=== PATIENT | female | born 1950 | race Caucasian/White ===

== ENCOUNTER 2017-06-10 09:31 | Emergency (ER) | payer BC, MEDICARE ==
[2017-06-10 10:49] VITALS: BP 130/85
--- NOTE | 2017-06-10 11:21 | UC ---
Throat Pain/Nasal Francisco J HPI - HPI Summary HPI Summary: This is a 67 yo female with HTN and hypothyroidism who presented with c/o 7-10 h /o nasal congestion and facial pain. She has had intermittent allergies in the past, but generally doesn't require treatment. She has been nervous about using any OTC medications because of her h/o HTN. She denies fever. Reports associated ear pain and ST. No cough or SOB. She has been using tylenol/ ibuprofen for pain relief. - History of Current Complaint Chief Complaint: UCGeneralIllness Stated Complaint: SINUS Hx Last Menstrual Period: 1990 - Allergies/Home Medications Allergies/Adverse Reactions: Allergies Allergy/AdvReac Type Severity Reaction Status Date / Time Iodine Allergy Severe Difficulty Verified 06/10/17 10:49 Breathing Hydrocodone [From Vicodin] Allergy Intermediate Hallucinati Verified 06/10/17 10 :49 ons Morphine Allergy Intermediate Hallucinati Verified 06/10/17 10:49 ons Adhesive Tape Allergy IRRITATION, Verified 06/10/17 10:49 TEARS SKIN Codeine Allergy Hallucinati Verified 06/10/17 10:49 ons JALEPENO PEPPERS Allergy DIFFICULTY Uncoded 06/10/17 10:49 BREATHING, FROTHY PHLEGM opiates Allergy Hallucinati Uncoded 06/10/17 10:49 ons opiods Allergy Hallucinati Uncoded 06/10/17 10:49 ons PMH/Surg Hx/FS Hx/Imm Hx Previously Healthy: No - HTN, hypthyroidism, HLD - Surgical History Surgical History: Yes Surgery Procedure, Year, and Place: 2015 Left breast Lumpectomy, [facility]. 1957 TONSILLECTOMY, [facility]. 1982 BILATERAL TUBAL LIGATION, [facility]. 1990 HYSTERECTOMY, [facility] [place]. 1991 SINUS SURGERY, [facility] [place]. 2012 THYROIDECTOMY, [facility] [place]. 01/2015 CYSTOSCOPY, DR. DUPREE'S OFFICE - Family History Known Family History: Positive: None - Social History Alcohol Use: Weekly Alcohol Amount: 3-4 glasses of wine four times a week Substance Use Type: None Smoking Status (MU): Former Smoker Type: Cigarettes Amount Used/How Often: on and off for 20 years Length of Time of Smoking/Using Tobacco: 20 Years Have You Smoked in the Last Year: Yes When Did the Patient Quit Smoking/Using Tobacco: 04/2017 - Immunization History Most Recent Influenza Vaccination: 2011 Most Recent Tetanus Shot: DON'T REMEMBER Review of Systems Constitutional: Negative Skin: Negative Eyes: Negative ENT: Sore Throat, Nasal Discharge, Sinus Congestion Respiratory: Negative Cardiovascular: Negative Gastrointestinal: Negative Genitourinary: Negative Motor: Negative Neurovascular: Negative Musculoskeletal: Negative Neurological: Negative Psychological: Negative All Other Systems Reviewed And Are Negative: Yes Physical Exam Triage Information Reviewed: Yes Appearance: Well-Appearing Vital Signs: Initial Vital Signs Temp 97.9 F 06/10/17 10:46 Pulse 64 06/10/17 10:46 Resp 16 06/10/17 10:46 BP 130/85 06/10/17 10:46 Pulse Ox 96 06/10/17 10:46 Vital Signs Reviewed: Yes ENT: Positive: TM dull, Other: - nasal turbinate edema. Negative: Tonsillar swelling, Tonsillar exudate Dental: Positive: Percussion Tenderness @ - maxillary and frontal sinus TTP Neck: Positive: Supple, Nontender, No Lymphadenopathy Respiratory: Positive: Chest non-tender, Lungs clear. Negative: Crackles, Rhonchi, Wheezing Cardiovascular: Positive: RRR, No Murmur Abdomen Description: Positive: Nontender, Soft Skin Exam: Normal Throat Pain/Nasal Course/Dx - Course Course Of Treatment: This is a 67 yo female with 7-10 h/o nasal congestion and facial pain without fever or focal pain. Patient reports improvement with azithromycin for similar symptoms in the past. Recommend treating for environmental allergies and will also use Zpak per pt request - Differential Dx/Diagnosis Differential Diagnosis/HQI/PQRI: Laryngitis, Pharyngitis, Sinusitis, Tonsillitis , URI Provider Diagnoses: 1. Nasal congestion - likely allergic rhinitis Discharge - Discharge Plan Condition: Stable Disposition: HOME Prescriptions: Azithromyxin ROHAN (NF) [Z-Rohan (Zithromax) 250 mg tabs #6] 2 tab PO .TODAY, THEN 1 DAILY #6 tab Fluticasone Propionate (Nasal) [Flonase Allergy Relief] 1 spray NA BID #1 bottle Loratadine [Hm Loratadine] 10 mg PO DAILY #30 tab Patient Education Materials: Allergic Rhinitis (ED) Referrals: Julissa Coto MD [Primary Care Provider] - 1 Week Additional Instructions: Instructions: 1. Please take medications as directed 2. Follow up with your primary care provider within 1-2 weeks
== END 2017-06-10 11:18 | disposition home or self-care (01) ==
LOC: UCCORT 09:31
DX: R09.81 Nasal congestion (principal); E03.9 Hypothyroidism, unspecified; I10 Essential (primary) hypertension; Z88.5 Allergy status to narcotic agent; Z91.048 Other nonmedicinal substance allergy status; Z87.891 Personal history of nicotine dependence
CPT/HCPCS: 99212; G0463

== ENCOUNTER 2018-01-02 20:40 | Emergency (ER) | payer MEDICARE ==
[2018-01-02 21:01] VITALS: BP 140/103
--- NOTE | 2018-01-02 21:20 | UC ---
Abdominal Pain Female HPI - HPI Summary HPI Summary: 67 yo female with nausea x 2 days myalgias which are slight worse left arm>right arm and legs no vomiting no cough flu cases at home read the internet and felt panically and came in - History of Current Complaint Chief Complaint: UCGeneralIllness Stated Complaint: LEFT ARM PAIN, NAUSEA Time Seen by Provider: 01/02/18 20:44 Hx Obtained From: Patient Hx Last Menstrual Period: 1990 Onset/Duration: Gradual Onset, Lasting Days Severity Initially: Mild Severity Currently: Mild Pain Intensity: 3 - myalgias Pain Scale Used: 0-10 Numeric Location: Other - no abd pain Aggravating Factor(s): Food Associated Signs and Symptoms: Positive: Nausea Allergies/Adverse Reactions: Allergies Allergy/AdvReac Type Severity Reaction Status Date / Time MS Iodine [Iodine] Allergy Severe Difficulty Verified 06/10/17 10:49 Breathing MS Hydrocodone [From Vicodin] Allergy Intermediate Hallucinati Verified 10:49 ons MS Morphine [Morphine] Allergy Intermediate Hallucinati Verified 06/10/17 10:49 ons Adhesive Tape Allergy IRRITATION, Verified 06/10/17 10:49 TEARS SKIN MS Codeine [Codeine] Allergy Hallucinati Verified 06/10/17 10:49 ons JALEPENO PEPPERS Allergy DIFFICULTY Uncoded 06/10/17 10:49 BREATHING, FROTHY PHLEGM opiates Allergy Hallucinati Uncoded 06/10/17 10:49 ons opiods Allergy Hallucinati Uncoded 06/10/17 10:49 ons PMH/Surg Hx/FS Hx/Imm Hx Previously Healthy: Yes Endocrine History: Dyslipidemia Cardiovascular History: Hypertension GI/ History: Gastroesophageal Reflux - Surgical History Surgical History: Yes Surgery Procedure, Year, and Place: 2015 Left breast Lumpectomy, [facility]. 1957 TONSILLECTOMY, [facility]. 1982 BILATERAL TUBAL LIGATION, [facility]. 1990 HYSTERECTOMY, [facility] [place]. 1991 SINUS SURGERY, [facility] [place]. 2012 THYROIDECTOMY, [facility] [place]. 01/2015 CYSTOSCOPY, DR. DUPREE'S OFFICE - Family History Known Family History: Positive: Hypertension - Social History Alcohol Use: Weekly Alcohol Amount: 3-4 glasses of wine four times a week Substance Use Type: None Smoking Status (MU): Light Every Day Tobacco Smoker Type: Cigarettes Amount Used/How Often: on and off for 20 years Length of Time of Smoking/Using Tobacco: 20 Years Have You Smoked in the Last Year: Yes When Did the Patient Quit Smoking/Using Tobacco: 04/2017 - Immunization History Most Recent Influenza Vaccination: 2011 Most Recent Tetanus Shot: DON'T REMEMBER Review of Systems Constitutional: Negative Skin: Negative Eyes: Negative ENT: Negative Respiratory: Negative Cardiovascular: Negative Gastrointestinal: Nausea Genitourinary: Negative Motor: Negative Neurovascular: Negative Musculoskeletal: Myalgia Neurological: Negative Psychological: Negative Is Patient Immunocompromised?: No All Other Systems Reviewed And Are Negative: Yes Physical Exam Triage Information Reviewed: Yes Appearance: Well-Appearing, No Pain Distress, Well-Nourished Vital Signs: Initial Vital Signs Temp 98.6 F 01/02/18 20:51 Pulse 77 01/02/18 20:51 Resp 16 01/02/18 20:51 BP 140/103 01/02/18 20:51 Pulse Ox 98 01/02/18 20:51 Vital Signs Reviewed: Yes Eyes: Positive: Conjunctiva Clear ENT: Positive: Hearing grossly normal, Uvula midline. Negative: Nasal congestion, Nasal drainage, Tonsillar swelling, Tonsillar exudate, Trismus, Muffled voice, Hoarse voice, Sinus tenderness Neck: Positive: Supple, Nontender, No Lymphadenopathy Respiratory: Positive: Lungs clear, Normal breath sounds, No respiratory distress, No accessory muscle use Cardiovascular: Positive: RRR, No Murmur Abdomen Description: Positive: Nontender, No Organomegaly, Soft. Negative: Bruit, CVA Tenderness (R), CVA Tenderness (L), Distended, Guarding Bowel Sounds: Positive: Present Musculoskeletal: Positive: ROM Intact, No Edema Neurological: Positive: Alert Psychological Exam: Normal Skin Exam: Normal Diagnostics - EKG Cardiac Rate: NL, Bradycardia Cardiac Rhythm: Sinus: Normal Ectopy: None ST Segment: Normal Re-Evaluation - Re-Evaluation First Eval Re-Evaluation Time: 21:33 Change: Unchanged Abd Pain Female Course/Dx - Course Course Of Treatment: declines suggestion to go to the ER. I have informed her that a normal EKG in the presence of these symptoms does not rule out an acute cornory event. daughter present during my discussion - Differential Dx/Diagnosis Provider Diagnoses: nausea uncertain cause. myalgias. elevated BP Discharge - Discharge Plan Condition: Stable Disposition: HOME Patient Education Materials: Acute Nausea and Vomiting (ED) Referrals: Julissa Coto MD [Primary Care Provider] - As Soon As Possible Additional Instructions: As discussed your EKG was normal This is encouraging but does not rule out your symptoms being from your heart This can only be ruled in or ruled out at the hospital If you change your mind please go to the ER see your MD first available appt any chest pain/shortness of breath/feeling faint please present to the ER
== END 2018-01-02 21:40 | disposition home or self-care (01) ==
LOC: UCCORT 20:40
DX: R11.0 Nausea (principal); M79.1 Myalgia; R03.0 Elevated blood-pressure reading, without diagnosis of hypertension; Z88.4 Allergy status to anesthetic agent; Z88.8 Allergy status to other drugs, medicaments and biological substances; Z91.048 Other nonmedicinal substance allergy status; Z88.5 Allergy status to narcotic agent; Z91.018 Allergy to other foods; Z87.891 Personal history of nicotine dependence
CPT/HCPCS: 87502; 93005; 99211; G0463

== ENCOUNTER 2018-11-25 12:44 | Emergency (ER) | payer MEDICARE ==
[2018-11-25 13:41] VITALS: BP 147/97
--- NOTE | 2018-11-25 14:01 | UC ---
Lower Extremity/Ankle HPI - HPI Summary HPI Summary: left ankle pain x 2 days s/p fall 2 days ago , twisted her left ankle pain is 6 out of 10 , no radiation , worse with britt bearing , better with rest and ice + swelling, no bruising , has been using crutches , - History of Current Complaint Chief Complaint: UCLowerExtremity Stated Complaint: S/P FALL-LEFT ANKLE COMPLAINT Time Seen by Provider: 11/25/18 13:36 Hx Obtained From: Patient Hx Last Menstrual Period: 1990 Onset/Duration: Sudden Onset, Lasting Days - 2, Still Present Severity Initially: Moderate Severity Currently: Moderate Pain Intensity: 6 Aggravating Factor(s): Standing, Ambulation Alleviating Factor(s): Rest, Elevation, Ice Able to Bear Weight: Yes - Allergies/Home Medications Allergies/Adverse Reactions: Allergies Allergy/AdvReac Type Severity Reaction Status Date / Time Adhesive Tape Allergy IRRITATION, Verified 11/25/18 13:38 TEARS SKIN codeine Allergy Hallucinati Verified 11/25/18 13:38 ons hydrocodone Allergy Hallucinati Verified 11/25/18 13:38 ons iodine Allergy Difficulty Verified 11/25/18 13:38 Breathing morphine Allergy Hallucinati Verified 11/25/18 13:38 ons JALEPENO PEPPERS Allergy DIFFICULTY Uncoded 11/25/18 13:38 BREATHING, FROTHY PHLEGM opiates Allergy Hallucinati Uncoded 11/25/18 13:38 ons opiods Allergy Hallucinati Uncoded 11/25/18 13:38 ons Home Medications: Home Medications Calcium Carbonate [Calcium] 500 mg PO DAILY 11/25/18 [History Confirmed 11/25/18 ] PMH/Surg Hx/FS Hx/Imm Hx Endocrine History: Thyroid Disease, Hypothyroidism Cardiovascular History: Hypertension GI/ History: Gastroesophageal Reflux Cancer History: Breast Cancer - Surgical History Surgical History: Yes Surgery Procedure, Year, and Place: 2015 Left breast Lumpectomy, [facility]. 1957 TONSILLECTOMY, [facility]. 1982 BILATERAL TUBAL LIGATION, [facility]. 1990 HYSTERECTOMY, [facility] [place]. 1991 SINUS SURGERY, [facility] [place]. 2012 THYROIDECTOMY, [facility] [place]. 01/2015 CYSTOSCOPY, DR. DUPREE'S OFFICE - Family History Known Family History: Positive: None, Hypertension - Social History Alcohol Use: Weekly Alcohol Amount: 3-4 glasses of wine four times a week Substance Use Type: None Smoking Status (MU): Light Every Day Tobacco Smoker Type: Cigarettes Amount Used/How Often: 1/2ppd Length of Time of Smoking/Using Tobacco: 20 Years Have You Smoked in the Last Year: Yes When Did the Patient Quit Smoking/Using Tobacco: 04/2017 - Immunization History Most Recent Influenza Vaccination: 2011 Most Recent Tetanus Shot: DON'T REMEMBER Review of Systems All Other Systems Reviewed And Are Negative: Yes Constitutional: Positive: Negative Skin: Positive: Negative Eyes: Positive: Negative ENT: Positive: Negative Musculoskeletal: Positive: Other: - left ankle pain Is Patient Immunocompromised?: No Physical Exam Triage Information Reviewed: Yes Appearance: Well-Appearing, No Pain Distress, Well-Nourished Vital Signs: Initial Vital Signs Temp 97.8 F 11/25/18 13:37 Pulse 97 11/25/18 13:37 Resp 16 11/25/18 13:37 BP 147/97 11/25/18 13:37 Pulse Ox 99 11/25/18 13:37 Vital Signs Reviewed: Yes Eye Exam: Normal Eyes: Positive: Conjunctiva Clear ENT: Positive: Normal ENT inspection, Hearing grossly normal, Pharynx normal Neck: Positive: Supple, Nontender, No Lymphadenopathy Respiratory: Positive: Chest non-tender, Lungs clear, Normal breath sounds Cardiovascular: Positive: RRR, No Murmur, Pulses Normal Musculoskeletal: Positive: Other: - left ankle : + swelling medial ankle, tendeness medial ladarius, limited ROM on plantar and dorsi flexion , Diagnostics - Laboratory Diagnostic Studies Completed/Ordered: xray left ankle : soft tissue swelling , no fracture Lower Extremity Course/Dx - Differential Dx/Diagnosis Provider Diagnosis: Sprain of left ankle Discharge - Sign-Out/Discharge Documenting (check all that apply): Patient Departure All imaging exams completed and their final reports reviewed: No - Discharge Plan Condition: Stable Disposition: HOME Patient Education Materials: Ankle Sprain (ED) Referrals: Pam Shaw MD [Primary Care Provider] - - Billing Disposition and Condition Condition: STABLE Disposition: Home
== END 2018-11-25 14:32 | disposition home or self-care (01) ==
LOC: UCCORT 12:44
DX: S93.402A Sprain of unspecified ligament of left ankle, initial encounter (principal); X50.1XXA Overexertion from prolonged static or awkward postures, initial encounter; Y93.9 Activity, unspecified; Y99.9 Unspecified external cause status; Z88.3 Allergy status to other anti-infective agents; Z88.5 Allergy status to narcotic agent; Z91.048 Other nonmedicinal substance allergy status; Z87.891 Personal history of nicotine dependence
CPT/HCPCS: 99212; G0463